=== PATIENT | female | born 1935 | race Two or more races ===

== ENCOUNTER → 2018-01-02 | Outpatient (CLI) | END | disposition home or self-care (01) ==

== ENCOUNTER → 2018-01-23 | Outpatient (CLI) | END | disposition home or self-care (01) ==

== ENCOUNTER → 2018-04-10 | Outpatient (CLI) | END | disposition home or self-care (01) ==

== ENCOUNTER → 2018-04-24 | Outpatient (CLI) | END | disposition home or self-care (01) ==